=== PATIENT | male | born 1945 | race Caucasian/White ===

== ENCOUNTER 2017-01-30 06:28 | Emergency (ER) | payer BC, MEDICARE ==
[~2017-01-30] VITALS: Ht 170.2 cm; Wt 73.3 kg
--- OUTSIDE RECORDS SUMMARY | 2017-01-30 06:32 | XMS REPORT ---
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
--- OUTSIDE RECORDS SUMMARY | 2017-01-30 06:32 | XMS REPORT | Continuity of Care Document ---
Author Author [facility] Organization [facility] Address Unknown Phone Unavailable Allergies Active Description Code Type Severity Reaction Onset Reported/Identified Relationship to Patient Clinical Status Yes AMPICILLIAN AAMP N/A RASH 07/29/2008 Yes Ampicillin 2692 Unknown N/A 07/29/2008 Medications Medication Packaging Start Date Stop Date Route Dosage Sig HEPARIN (PORCINE) 5000 UNIT/ML 10/29/2016 10/29/2016 PRN HEPARIN (PORCINE)-0.45% NACL 10/29/2016 10/29/2016 TITRATE ZOLPIDEM 10/29/2016 10/31/2016 HSPRN ACETAMINOPHEN 10/29/2016 10/30/2016 Q4HPRN ONDANSETRON HCL 10/29/2016 10/30/2016 Q6HPRN BISACODYL 10/29/2016 10/31/2016 Q6HPRN BISACODYL 10/29/2016 10/31/2016 Q6HPRN SODIUM CHLORIDE 0.9 % 10/29/2016 10/31/2016 PRNIV MORPHINE 10/29/2016 10/31/2016 PRNACS MORPHINE 10/29/2016 10/31/2016 PRNACS NITROGLYCERIN IN D5W 10/29/2016 10/31/2016 PRNIV ALUM-MAG HYDROXIDE-SIMETH 10/29/2016 10/30/2016 PRN MAGNESIUM HYDROXIDE 10/29/2016 10/30/2016 PRN NITROGLYCERIN 10/29/2016 10/31/2016 PRNCP DIAZEPAM 10/29/2016 10/29/2016 ONCE ALUM-MAG HYDROXIDE-SIMETH 10/29/2016 10/31/2016 Q4HPRN DOCUSATE SODIUM 10/29/2016 10/31/2016 BIDPRN ACETAMINOPHEN 10/29/2016 10/31/2016 Q4HPRN ACETAMINOPHEN 10/29/2016 10/31/2016 Q4HPRN MAGNESIUM HYDROXIDE 10/29/2016 10/31/2016 HSPRN DIAZEPAM 10/29/2016 10/29/2016 ONCE NITROGLYCERIN 0.2MG/HR 10/29/2016 10/31/2016 PATCH HYDROCODONE-ACET 5-325MG 10/29/2016 10/31/2016 Q3HPRN ONDANSETRON HCL 10/29/2016 10/31/2016 Q6HPRN CLOPIDOGREL 10/29/2016 10/31/2016 QD ROSUVASTATIN 10/30/2016 10/31/2016 QD ASPIRIN 10/30/2016 10/31/2016 0700 Problems Date Dx Coded Attending Type Code Diagnosis Diagnosed By 12/10/2016 CHAVA LEYVA E78.00 PURE HYPERCHOLESTEROLEMIA, UNSPECIFIED CHAVA LEYVA 12/10/2016 CHAVA LEYVA I10 ESSENTIAL (PRIMARY) HYPERTENSION CHAVA LEYVA 12/10/2016 CHAVA LEYVA P I21.4 NON-ST ELEVATION (NSTEMI) MYOCARDIAL INFARCTION CHAVA LEYVA 12/10/2016 CHAVA LEYVA 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 CHAVA LEYVA 12/10/2016 CHAVA LEYVA 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 PREMATURE DEPOLARIZATION CHAVA LEYVA 12/10/2016 CHAVA LEYVA R00.1 BRADYCARDIA, UNSPECIFIED CHAVA LEYVA Procedures Code Description Performed By Performed On 45.23 COLONOSCOPY Jordan JENNINGS, Soco Dang NAME ALERT 09/30/2013 Results Test Result Range CBC NO DIFF (HEMOGRAM) - 10/29/16 11:30 WBC - WHITE CELL COUNT 8.3 X10(3) 4.5-11.0 RBC - RED CELL COUNT 5.32 X10(6) 4.60-6.20 PLATELET COUNT 218 X10(3) 150-450 HEMOGLOBIN 15.7 g/dl 13.5-18.0 HEMATOCRIT 45.5 % 40.0-54.0 MCV 85.5 fL 80.0-96.0 MCH 30 pg 27-31 MCHC 34.5 % 32.0-36.0 PTT - 10/29/16 11:30 PTT 25.7 secs 23.0-33.0 HOLD SPECIMEN FOR BLOOD BANK - 10/29/16 11:30 HOLD SPECIMEN FOR BLOOD BANK ARC LIPID PANEL - 10/29/16 11:30 CHOLESTEROL 241 mg/dl <=199 HDL CHOLESTEROL 73 mg/dl 40-60 TRIGLYCERIDES 61 mg/dl <=200 LDL, CALCULATED 155.8 mg/dl 0.0-99.0 VLDL, CALCULATED 12.2 mg/dl 0.0-130.0 CARDIAC RISK 3 CKMB (INCLD. CK, CKMB, INDEX) - 10/29/16 11:30 CPK-CREATINE KINASE 112.00 U/L 39.00-308.00 CKMB 1.3 ng/ml <=3.6 CKMB MASS INDEX 1.2 CMP - COMPREHENSIVE METABOLIC PANEL - 10/29/16 11:30 GLUCOSE 106 mg/dl 74-106 BUN 20 mg/dl 7-18 CREATININE 1.34 mg/dl 0.70-1.30 eGFR 53 mL/min SODIUM (NA) 140 mEq/L 136-146 POTASSIUM, BLOOD 4.1 mEq/L 3.5-5.1 CHLORIDE 103 mEq/L 98-107 CO2 (BICARBONATE) 30 mEq/L 21-32 CALCIUM 9.1 mg/dl 8.5-10.1 ALBUMIN, SERUM 3.8 g/dl 3.4-5.0 PROTEIN, TOTAL 7.1 g/dl 6.4-8.2 AST (SGOT) 22 U/L 15-37 ALT (SGPT) 30 U/L 16-63 ALK PHOS 105 U/L 46-116 BILIRUBIN, TOTAL 0.6 mg/dl 0.2-1.0 MAGNESIUM - 10/29/16 11:30 MAGNESIUM 2.1 mg/dl 1.8-2.4 TROPONIN-I - 10/29/16 11:30 TROPONIN-I 0.46 ng/ml <=0.05 URINALYSIS, DIPSTICK ONLY - 10/29/16 12:18 COLOR STRAW STRAW CLARITY/APPEARANCE CLEAR CLEAR BILIRUBIN URINE HEADER Interpret positive Bilirubin results with caution. Large amounts of urobilinogen in the urine affect the color change of the bilirubin test (false positive). Highly basic urines (pH>9) might show false-positive readings on bilirubin. False-positive readings are obtained during treatment with imipenem, penicillin, and p- aminosalicyclic acid. UROBILINOGEN (URINALYSIS) NORMAL NORMAL SP GRAV 1.020 1.005-1.025 PH 5.0 6.0-8.0 LEUKO NEG NEG NITRITE NEG NEG PROTEIN NEG. NEG. GLUCOSE NORMAL NORMAL KETONES 15 mg/dL NEG BILIRUBIN NEG NEG BLOOD NEG NEG CKMB (INCLD. CK, CKMB, INDEX) - 10/29/16 19:45 CPK-CREATINE KINASE 111.00 U/L 39.00-308.00 CKMB 1.5 ng/ml <=3.6 CKMB MASS INDEX 1.4 TROPONIN-I - 10/29/16 19:45 TROPONIN-I 0.43 ng/ml <=0.05 CBC NO DIFF (HEMOGRAM) - 10/30/16 04:20 WBC - WHITE CELL COUNT 6.8 X10(3) 4.5-11.0 RBC - RED CELL COUNT 4.81 X10(6) 4.60-6.20 PLATELET COUNT 184 X10(3) 150-450 HEMOGLOBIN 14.3 g/dl 13.5-18.0 HEMATOCRIT 41.1 % 40.0-54.0 MCV 85.4 fL 80.0-96.0 MCH 30 pg 27-31 MCHC 34.8 % 32.0-36.0 BMP - BASIC METABOLIC PANEL - 10/30/16 04:20 GLUCOSE 88 mg/dl 74-106 BUN 20 mg/dl 7-18 CREATININE 1.20 mg/dl 0.70-1.30 eGFR 60 mL/min SODIUM (NA) 138 mEq/L 136-146 POTASSIUM, BLOOD 4.0 mEq/L 3.5-5.1 CHLORIDE 106 mEq/L 98-107 CO2 (BICARBONATE) 26 mEq/L 21-32 CALCIUM 8.5 mg/dl 8.5-10.1 CKMB (INCLD. CK, CKMB, INDEX) - 10/30/16 04:20 CPK-CREATINE KINASE 97.00 U/L 39.00-308.00 CKMB 1.0 ng/ml <=3.6 CKMB MASS INDEX 1.0 TROPONIN-I - 10/30/16 04:20 TROPONIN-I 0.44 ng/ml <=0.05 Encounters ACCT No. Visit Date/Time Discharge Status Pt. Type Provider Facility Loc./Unit Complaint [id number] 09/30/2013 08:34:00 2012 11:51:00 DIS Outpatient Soco Ortega MD NAME [facility] W.END
--- OUTSIDE RECORDS SUMMARY | 2017-01-30 06:32 | XMS REPORT ---
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
--- OUTSIDE RECORDS SUMMARY | 2017-01-30 06:32 | XMS REPORT ---
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
--- OUTSIDE RECORDS SUMMARY | 2017-01-30 06:32 | XMS REPORT ---
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
--- NOTE | 2017-01-30 06:40 | NUR ---
DR DR DUKES IN TO SEE PT.
[2017-01-30 06:45] VITALS: TEMP 98; Ht 170.2 cm; Wt 73.3 kg
[2017-01-30] MEDS ORDERED: LISI10TA7 PO (06:53)
[2017-01-30] MEDS ORDERED: CLOP75TA PO (06:53)
[2017-01-30] MEDS ORDERED: ASPI-557 PO (06:53)
[2017-01-30] MEDS ORDERED: ROSU20TA PO (06:53)
--- NOTE | 2017-01-30 07:09 | ERPDOC ---
Departure Disposition Decision Date: Jan 30, 2017 Disposition Decision Time: 09:37 Disposition: 01 DISCHARGED HOME, SELF-CARE Impression Impression Impression: Primary Impression: Diverticulitis Severity: Moderate Condition: Stable Seen By: Physician only Referrals: JENNA HALL MD (Family) Patient Instructions: Diverticulitis (ED), Diverticulitis Diet (ED) Problems/Meds/Labs Reviewed?: Yes Medications reviewed and manag: Yes Additional Instructions: Flagyl 500 mg tab, 3 times daily. Cipro 500 mg twice daily. Follow diverticular diet. Please follow up with your primary care provider. Follow up care ordered?: Yes Mental Status: Alert, Oriented Scripts Metronidazole (Flagyl) 500 Mg Tablet 1 TAB PO TID for 14 Days, #42 TAB Prov: BRENNEN DUKES MD 01/30/17 Ciprofloxacin HCl (Cipro) 500 Mg Tablet 500 MG PO Q12HR, #28 TAB Prov: BRENNEN DUKES MD 01/30/17 HPI - Abdominal Pain General Chief Complaint: Abdominal Pain Stated Complaint: L SIDE PAIN, POSS HERNIA Time Seen by Provider: 07:06 HPI - Abdominal Pain Initial Comments 72 yo male with onset of abd pain over the last two days. 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 He runs daily and has actively tried to protect his health. Mesh placement for left sided inguinal hernia 10 years ago and pain started at op site yesterday while weeding garden. Pt did not sleep well last night because of this. No fever, no chills, no n/v, no diarrhea. No dysuria or hematuria. no scrotal pain. Pain in groin worse with laughing or coughing, worse with rising off bed. Allergies: Coded Allergies: ampicillin (Verified Allergy, Unknown, 01/30/17) Past History Patient Medical History Problem List Updates: cardiac stent, cad htn Patient Surgical History cardiac stent, inguinal hernia repair. Past Medical History Pt denies signifigant PMH Vaccines Hx Pneumococcal Vaccination: Yes (2000) Hx Tetanus, Diptheria, Pertuss: Yes (UNKNOWN BUT BELIEVES UTD, HE HAS BEEN OVERSEAS) Social History Smoking Status: Never smoker Substance Use Type: does not use Record Review Pertinent history updated: Yes Review of Systems GI Upper Abdomen: see HPI General: see HPI Musculoskeletal General: see HPI Physical Exam General General Nourishment: well nourished, well developed, appears stated age Distress Description pain with movement. General Body Habitus: well groomed Vitals and Pain First Documented Vital Signs Date Time Temp Pulse Resp B/P Pulse Ox O2 Delivery O2 Flow Rate FiO2 01/30/17 06:45 98.0 57 20 156/80 98 Room Air Weight: Kilograms: 73.300 Height (feet): 5 Height (inches): 7.00 Triage Pain Scale: Normal Exams: Head: Normocephalic w/o trauma Eyes: Pupils are PERRLA w/ EOMI, No scleral icterus, irritation, or foreign bodies noted Neck: Full range of motion, without adenopathy, JVD, bruits or thyromegaly Chest/Resp: Clear all garland, with good airflow, and symmetry bilaterally CV: Regular rate and rhythm, without murmur or gallop, Pulses 2+ all extremities, capillary refill, <2 seconds all ext., no pedal edema noted Abdomen: Bowel sounds positive, soft, non-tender, non-distended, no hepatosplenomegaly, masses or bruits noted : Penis without lesions, testicles normal size, and orientation, without tenderness Neurologic: Patient is alert, and oriented, cranial nerves, motor/sensory/ cerebellar, exams w/o gross deficits, to observation Psychiatric: Patient exhibits, appropriate attention, emotion and affect Differential Diagnoses Considering: Biliary Colic, Constipation, Diverticulitis, GI Bleed Progress Results/Orders Orders Procedure Category Date Status Time Iv Lock (Ed Only) EDM 01/30/17 Transmitted 07:14 Cbc W/Auto LAB 01/30/17 Complete Diff-Reflex Manual 07:14 Cmp - Comprehensive LAB 01/30/17 Complete Metabolic 07:14 Ua, Dip Wreflex LAB 01/30/17 Complete Microsc & Knot Tier 07:14 Ct Abd/Pelvis CT 01/30/17 Resulted W/Contrast Only 07:14 Normal Saline (Normal PHA 01/30/17 Complete Saline Iv) 07:14 Hydromorphone PHA 01/30/17 In Process (Dilaudid) 07:15 Ondansetron Inj PHA 01/30/17 In Process (Zofran) 07:15 Iohexol (Omnipaque) PHA 01/30/17 Complete 08:07 Normal Saline (Ns) PHA 01/30/17 Complete 08:07 Saline Flush (Iv PHA 01/30/17 Complete Flush) 08:07 Lab Results Laboratory Tests Test 01/30/17 07:03 01/30/17 07:58 White Blood Count 9.6T/MM3 Red Blood Count 4.89M/MM3 Hemoglobin 14.5GM/DL Hematocrit 42.6% Mean Corpuscular Volume 87.1UM3 Mean Corpuscular Hemoglobin 29.7UUG Mean Corpuscular Hemoglobin Concent 34.0GM/DL RDW Standard Deviation 45.1FL Platelet Count 175T/MM3 Mean Platelet Volume 10.1UM3 Immature Granulocyte % (Auto) 0.1% Neutrophils (%) (Auto) 73.0% Lymphocytes (%) (Auto) 14.4% Monocytes (%) (Auto) 7.4% Eosinophils (%) (Auto) 4.8% Basophils (%) (Auto) 0.3% Absolute Immature Granulocyte (auto 0.01T/MM3 Absolute Neutrophils (auto) 7.0T/MM3 Absolute Lymphocytes (auto) 1.4T/MM3 Absolute Monocytes (auto) 0.7T/MM3 Absolute Eosinophils (auto) 0.5T/MM3 Absolute Basophils (auto) 0.0T/MM3 Turbidity < 20 Sodium Level 145MEQ/L Potassium Level 4.2MEQ/L Chloride Level 103MEQ/L Carbon Dioxide Level 27MEQ/L Anion Gap 15MEQ/L Blood Urea Nitrogen 17.0MG/DL Creatinine 1.4MG/DL Glomerular Filtration Rate Calc 50 BUN/Creatinine Ratio 12RATIO Glucose Level 93MG/DL Calculated Osmolality 281MOSM/KG Calcium Level 9.2MG/DL Total Bilirubin 0.80MG/DL Icterus Index < 2 Aspartate Amino Transf (AST/SGOT) 23U/L Alanine Aminotransferase (ALT/SGPT) 27U/L Alkaline Phosphatase 83U/L Total Protein 6.6G/DL Albumin 3.8G/DL Globulin 2.8G/DL Albumin/Globulin Ratio 1.4RATIO Chemistry Specimen Hemolysis < 15 Urine Collection Type Voided-not cc-midstr Urine Color Yellow Urine Turbidity Clear Urine pH 6.0 Urine Specific [place] 1.010 Urine Protein Negative Urine Glucose (UA) Negative Urine Ketones Negative Urine Blood Negative Urine Nitrite Negative Urine Bilirubin Negative Urine Urobilinogen 0.2EU/DL Urine Leukocyte Esterase Negative Urinalysis Comment Microscopic not ind. Medications Current ED Medications Sodium Chloride (Normal Saline IV) 1,000 ml @ 1,000 mls/hr Q1H ONCE IV Last administered on 01/30/17t 07:24; Start 01/30/17 at 07:14; Stop 01/30/17 at 08:13 ; Status DC Hydromorphone HCl (Dilaudid) 0.5 mg O PRN IV PAIN; Start 01/30/17 at 07:15 Ondansetron HCl (Zofran) 4 mg O PRN IV NAUSEA; Start 01/30/17 at 07:15 Iohexol 1 bottle 1 bottle STK-MED ONCE .ROUTE ; Start 01/30/17 at 08:07; Stop at 08:08; Status DC Sodium Chloride (NS) 100 ml @ As Directed STK-MED ONCE .ROUTE ; Start 01/30/17 at 08:07; Stop 01/30/17 at 08:08; Status DC Sodium Chloride (Iv Flush) 10 ml STK-MED ONCE .ROUTE ; Start 01/30/17 at 08:07; Stop 01/30/17 at 08:08; Status DC Progress Progress CT of abdomen pelvis identifies diverticulitis. No signs of perforation. Patient be started on Flagyl and Cipro for 14 days. He agreed to see his primary care provider to follow-up. He declined pain medication. We discussed diverticulitis diet. He will follow up as needed. BRENNEN DUKES MD Jan 30, 2017 07:09
[2017-01-30] MEDS ORDERED: NORMAL SALINE 1,000 ML IV ONE (07:14)
[2017-01-30] MEDS ORDERED: ONDANSETRON 4mg/2ml INJECTION IV PRN (07:15)
[2017-01-30] MEDS ORDERED: HYDROMORPHONE 2mg/ml INJECTION IV PRN (07:15)
--- OUTSIDE RECORDS SUMMARY | 2017-01-30 07:17 | XMS REPORT | Continuity of Care Document ---
Author Author [facility] Organization 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 Type Provider Facility Loc./Unit Complaint [id number] 09/30/2013 08:34:00 2012 11:51:00 DIS Outpatient Soco Ortega MD NAME [facility] W.END
--- NOTE | 2017-01-30 07:24 | NUR ---
IV FLUIDS IV FLUID BOLUS STARTED.
[2017-01-30 07:30] LABS: BASOPHILS % (AUTO) 0.3 % (0-2); EOSINOPHILS # (AUTO) 0.5 T/MM3 (0-0.5); EOSINOPHILS % (AUTO) 4.8 % (0-4); HCT - HEMATOCRIT 42.6 % (41-53); HGB - HEMOGLOBIN 14.5 GM/DL (13.5-17.5); IMMATURE GRANULOCYTE # (AUTO) 0.01 T/MM3 (0.00-0.03); IMMATURE GRANULOCYTE % (AUTO) 0.1 % (0.0-0.5); LYMPHOCYTES # (AUTO) 1.4 T/MM3 (1-4.8); LYMPHOCYTES % (AUTO) 14.4 % (23-45); MEAN CORPUSCULAR HGB 29.7 UUG (26-34); MEAN CORPUSCULAR VOLUME 87.1 UM3 (80-100); MEAN PLATELET VOLUME 10.1 UM3 (9.4-12.4); MONOCYTES # (AUTO) 0.7 T/MM3 (0-0.8); MONOCYTES % (AUTO) 7.4 % (0-9.0); RED BLOOD COUNT 4.89 M/MM3 (4.50-5.90); WBC - WHITE BLOOD COUNT 9.6 T/MM3 (4.5-11.0)
[2017-01-30 07:36] LABS: ALBUMIN 3.8 G/DL (3.5-5.0); ALBUMIN/GLOBULIN RATIO 1.4 RATIO (1.1-2.2); ALKALINE PHOSPHATASE 83 U/L (38-126); ALT (SGPT) 27 U/L (21-72); ANION GAP 15 MEQ/L (5-15); AST (SGOT) 23 U/L (17-59); BUN/CREATININE RATIO 12 RATIO (6-26); CALCIUM 9.2 MG/DL (8.4-10.2); CHLORIDE 103 MEQ/L (98-107); CO2 - CARBON DIOXIDE 27 MEQ/L (22-30); CREATININE 1.4 MG/DL (0.8-1.5); GLOMERULAR FILTRATION RATE 50; GLUCOSE 93 MG/DL (75-110); POTASSIUM 4.2 MEQ/L (3.6-5); SODIUM 145 MEQ/L (134-144); TOTAL PROTEIN 6.6 G/DL (6.3-8.2)
[2017-01-30] MEDS ORDERED: IOHEXOL 300 MG/ML 100ml INJECTION ONE (08:07)
[2017-01-30] MEDS ORDERED: SALINE FLUSH 10ml SYRINGE ONE (08:07)
[2017-01-30] MEDS ORDERED: NORMAL SALINE 100 ML ONE (08:07)
[2017-01-30 08:10] LABS: BLOOD, URINE NEGATIVE (NEGATIVE); COLOR,URINE YELLOW (YELLOW); LEUKOCYTE ESTERASE ,URINE NEGATIVE (NEGATIVE); NITRITE,URINE NEGATIVE (NEGATIVE); UROBILINOGEN,URINE 0.2 EU/DL (NORMAL)
--- NOTE | 2017-01-30 08:40 | NUR ---
CT PT. TO CT PER CART.
--- NOTE | 2017-01-30 08:50 | NUR ---
CT PT. RETURNED FROM CT.
--- NOTE | 2017-01-30 09:03 | DI ---
Indication: ITS.REASON: llq pain PROCEDURE: CT ABD/PELVIS W/CONTRAST ONLY: Encounter: Initial Comparison: None Technique: Axial CT images were performed through the abdomen and pelvis after the administration of intravenous contrast. Coronal and sagittal two-dimensional reformats. Automated Exposure Control and Iterative Reconstruction dose reducing techniques were utilized. Contrast: Omnipaque 300 89 mL Findings: The lung bases are clear. The liver appears normal. The gallbladder, spleen, pancreas and adrenal glands are within normal limits. The kidneys are normal. No abdominal or pelvic lymphadenopathy. Bladder is normal. Prostate and rectum are normal. No free fluid. Sigmoid diverticulosis with an area of acute inflammation along the proximal sigmoid colon. No evidence of free air or abscess formation. The remainder of the colon is within normal limits. Small bowel appears normal. Bone windows show no significant findings. Impression: Acute uncomplicated sigmoid diverticulitis. .
--- NOTE | 2017-01-30 09:10 | NUR ---
STATUS PT. STATES HE IS DOING FINE AND LAZARUS NEED FOR PAIN MEDICATION.
[2017-01-30] MEDS ORDERED: CIPR-212 PO (09:40)
[2017-01-30] MEDS ORDERED: METR500T PO (09:41)
--- NOTE | 2017-01-30 10:10 | NUR ---
DISMISSAL NOTE DISMISSAL INSTRUCTIONS GIVEN TO PT. AND NO FURTHER QUESTIONS. RX FOR CIPRO AND FLAGYL GIVEN TO PT. PT. LEFT ED AMBULATORY.
[2017-01-30 10:11] VITALS: BP 141/75; PULSE 54; RESP 18; O2SAT 96
== END 2017-01-30 10:10 | disposition home or self-care (01) ==
LOC: ED 06:28
DX: K57.32 Diverticulitis of large intestine without perforation or abscess without bleeding (principal)
CPT/HCPCS: 74177; 80053; 81003; 85025; 96360; 99284; J7030; J7050; Q9967